=== PATIENT | male | born 1945 | race Caucasian/White ===

== ENCOUNTER 2021-06-25 19:02 | Emergency (ER) | payer MEDICARE, OTHER ==
[~2021-06-25] VITALS: Ht 180.3 cm; Wt 79.4 kg
[2021-06-25] MEDS ORDERED: TIOT18 INH (19:34)
[2021-06-25] MEDS ORDERED: CEPH500 PO (20:03)
== END 2021-06-25 20:17 | disposition home or self-care (01) ==
LOC: ER 19:02
DX: S61.412A Laceration without foreign body of left hand, initial encounter (principal); Z23 Encounter for immunization; W45.8XXA Other foreign body or object entering through skin, initial encounter
CPT/HCPCS: 10120; 90471; 90714; 99283-25; A9270